=== PATIENT | female | born 1975 | race Caucasian/White ===

== ENCOUNTER 2016-12-30 06:44 | Day surgery (SDC) | payer BC ==
[~2016-12-30 06:44] MED LIST: Lactated Ringers 1,000 ML IV SCH; Lidocaine 1%/Sod Bicarbonate in NS 8.4% 1 ML Syringe PRN; Sodium Chloride 0.9% 10 ML Syringe FLUSH PRN
[2016-12-30] MEDS ORDERED: Bupivacaine 0.5% 30 ML SDV ONE (07:05)
[2016-12-30] MEDS ORDERED: Lidocaine 1% with EPINEPHrine 1:100,000 20 ML MDV ONE (07:05)
[2016-12-30] MEDS ORDERED: Sodium Chloride 0.9% 50 ML SDV ONE (07:06)
--- NOTE | 2016-12-30 07:17 | PCM.PREANE ---
Preanesthetic Assessment - Anesthesia/Transfusion/Family Hx Anesthesia History: Prior Anesthesia Without Reaction Family History of Anesthesia Reaction: Yes (nausea) Transfusion History: No Prior Transfusion(s) - Review of Systems General: No Symptoms Pulmonary: No Symptoms Cardiovascular: No Symptoms Gastrointestinal: No Symptoms Neurological: No Symptoms Other: Reports: None - Physical Assessment NPO Status Date: 12/29/16 NPO Status Time: 00:00 Pulse: 73 O2 Sat by Pulse Oximetry: 96 Respiratory Rate: 16 Blood Pressure: 122/83 Temperature: 36.5 C Height: 1.8 m Weight: 75.9 kg ASA Class: 2 Mental Status: Alert & Oriented x3 Airway Class: Mallampati = 1 Dentition: Reports: [place](s) Thyro-Mental Finger Breadths: 3 Mouth Opening Finger Breadths: 3 ROM/Head Extension: Full Lungs: Clear to Auscultation, Normal Respiratory Effort Cardiovascular: Regular Rate, Regular Rhythm - Lab Values: Laboratory Last Values Urine HCG, Qual Negative (NEGATIVE) 12/30/16 06:50 - Allergies Allergies/Adverse Reactions: Allergies Allergy/AdvReac Type Severity Reaction Status Date / Time minocycline Allergy Hives Verified 12/29/16 14:21 - Blood Blood Available: Yes - Anesthesia Plan Pre-Op Medication Ordered: None - Acknowledgements Anesthesia Type Planned: General Anesthesia Pt an Appropriate Candidate for the Planned Anesthesia: Yes Alternatives and Risks of Anesthesia Discussed w Pt/Guardian: Yes Pt/Guardian Understands and Agrees with Anesthesia Plan: Yes PreAnesthesia Questionnaire HEENT History: Reports: Impaired Vision, Other (See Below) Other HEENT History: wears glasses Cardiovascular History: Reports: None Respiratory History: Reports: None Gastrointestinal History: Reports: None 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: Endometrial Ablation, Other (See Below) Other OB/BYN History: menorrhagia, hysteroscopy Musculoskeletal History: Reports: None Neurological History: Reports: Migraines Psychiatric History: Reports: None Endocrine/Metabolic History: Reports: None Hematologic History: Reports: None Immunologic History: Reports: None Oncologic (Cancer) History: Reports: None Dermatologic History: Reports: Other (See Below) Other Dermatologic History: acne, excision of benign lesion - Past Surgical History Head Surgeries/Procedures: Reports: None HEENT Surgical History: Reports: LASIK, Oral Surgery Cardiovascular Surgical History: Reports: None Respiratory Surgical History: Reports: None GI Surgical History: Reports: None Female Surgical History: Reports: D&C, Endometrial Ablation, Tubal Ligation Endocrine Surgical History: Reports: None Neurological Surgical History: Reports: None Musculoskeletal Surgical History: Reports: None Oncologic Surgical History: Reports: None - SUBSTANCE USE Smoking Status *Q: Former Smoker Tobacco Use Within Last Twelve Months: No Second Hand Smoke Exposure: No Days Per Week of Alcohol Use: 0 Number of Drinks Per Day: 0 Total Drinks Per Week: 0 Recreational Drug Use History: No - HOME MEDS Home Medications: Home Meds Biotin 10 mg PO DAILY 12/29/16 [History] Naproxen Sodium [Aleve] 220 - 240 mg PO BID PRN 12/29/16 [History] Spironolactone [Aldactone] 100 mg PO DAILY 12/29/16 [History] - CURRENT (IN HOUSE) MEDS Current Meds: Current Medications Lactated Ringer's (Ringers, Lactated) 1,000 mls @ 125 mls/hr IV ASDIRECTED STACIE Stop: 12/30/16 23:00 Lidocaine/Sodium Bicarbonate (Buffered Lidocaine 1% In Ns 8.4%) 0.25 ml .XX ONETIME PRN PRN Reason: Prior to IV Start Stop: 12/30/16 18:00 Sodium Chloride (Saline Flush) 10 ml FLUSH ASDIRECTED PRN PRN Reason: Keep Vein Open Stop: 12/30/16 18:00
[2016-12-30] MEDS ORDERED: Rocuronium 50 MG/5 ML Vial ONE (07:26)
[2016-12-30] MEDS ORDERED: fentaNYL 250 MCG/5 ML SDV ONE ×2 (07:26→08:42)
[2016-12-30] MEDS ORDERED: Ondansetron 4 MG/2 ML SDV ONE (07:26)
[2016-12-30] MEDS ORDERED: Propofol 200 MG/20 ML SDV ONE (07:26)
[2016-12-30] MEDS ORDERED: Midazolam 1 MG/ML 2 ML SDV ONE (07:26)
[2016-12-30] MEDS ORDERED: Lidocaine 1% 4 ML ONE (07:27)
[2016-12-30] MEDS ORDERED: ceFAZolin 1 GM Vial ONE (07:32)
[2016-12-30] MEDS ORDERED: Dexamethasone 4 MG/ML 5 ML MDV ONE (08:04)
[2016-12-30] MEDS ORDERED: diphenhydrAMINE 50 MG/ML SDV ONE (08:04)
[2016-12-30] MEDS ORDERED: HYDROmorphone 1 MG/ML Syringe ONE ×2 (08:15→08:50)
[2016-12-30] MEDS ORDERED: Lactated Ringers 1,000 ML ONE ×3 (08:32→10:37)
[2016-12-30] MEDS ORDERED: Ketorolac 30 MG/ML SDV IVPUSH PRN (10:43)
[2016-12-30] MEDS ORDERED: HYDROmorphone 0.5 MG/0.5 ML Syringe IVPUSH PRN (10:43)
[2016-12-30] MEDS ORDERED: fentaNYL 100 MCG/2 ML SDV IVPUSH PRN (10:43)
--- NOTE | 2016-12-30 10:43 | PCM.OPNOTE ---
- General Post-Op/Procedure Note Date of Surgery/Procedure: 12/30/16 Operative Procedure(s): LAVH, bilateral salpingectomy Findings: Normal tubes and ovaries Pre Op Diagnosis: menorrhagia, family history of ovarian cancer Post-Op Diagnosis: Same Anesthesia Technique: General ET Tube Primary Surgeon: Tahmina Carlisle Tool And Fixture Repairer: Elaina Hare Reason Tool And Fixture Repairer Was Necessary: patient positioning, safety, retraction Pathology: uterus and tubes Fluid Replacement, Intraop: 3,000 Output, Urine Amount: 100 EBL in mLs: 600 Complications: None Condition: Good Free Text/Narrative:: After obtaining appropriate consent she was taken the the operating room where general anesthetic was administered. She was prepped and draped in the usual sterile fashion in high lithotomy using rocael stirrups. A weighted speculum was placed in the posterior vagina and a michaela utilized anteriorly to visualize the cervix which was grasped with a single toothed tenaculum and placed on traction. A uterine manipulator was then advanced into the uterus. Attention was re-directed to the abdomen and a 5 mm skin incision was made in the patient's umbilical fold. A blunt tipped trocar was advanced under direct visualization using the laparoscope. The abdomen was insufflated and no evidence of injury upon entry was noted. General survey of the abdomen reveal enlarged and boggy uterus and ovaries. A 5 mm incision was then made on each the right and left side and a blunt tipped trocar was advanced under direct visualization. The left ovary was elevated and the IP ligement was cauterized and transected with the Ligasure after the ureter was identified. The dissection was continued to the round ligament. The round ligament was then cauterized and transected. The bladder flap was created starting on the left. Bladder was dissected off the cervix. The uterine artery and broad ligament on the left was serial cauterized and transected to the level of the cervix. The right IP, round ligament, broad ligament and uterine artery were cauterized and transected in a similar manner. No bleeding was noted at any of the pedicles. The pelvis was irrigated and suctioned. All instruments were removed and the gas was released. Attention was redirected to the vagina. Area of intended colpotomy injected with 25% marcaine with epinepherine. Incision made with scapel. The posterior cul-de-sac was entered sharply with the Mooney scissors. The long weighted speculum was placed. The uterosacral ligaments were identified bilaterally, clamped, transected with ligasure. These were tagged for later reference. A second clamp was placed onto the cardinal ligament bilaterally, this was transected and ligasure ligated. Attention was turned anteriorly. Blunt and sharp dissection was used to mobilize the bladder off the cervix. The anterior cul-de-sac was entered sharply. The cardinal ligament was serially clamped, transected and suture ligated. The Bakari retractor was advanced. The cardinal ligament was then clamped to met the dissection from above including the uterine vessels bilaterally. The specimen was delivered and handed off. Inspection of the pedicles noted hemostasis. The posterior cuff was run with 0- vicryl in a running fashion. The cuff was closed using 0 vicryl figure of eights in a vertical fashion. The retractors were removed and the abdomen was reinsufflated. All pedicles were hemostatic. All instruments were removed from the abdomen and the incisions were closed with 4-0 vicryl and covered with dermabond. Clear urine was noted. She was repositioned supine, draping removed and then taken to PACU in stable condition. Needle, sponge and instrument counts were correct X 3.
[2016-12-30] MEDS ORDERED: Acetaminophen/oxyCODONE 325-5 MG Tab PO PRN (10:44)
[2016-12-30] MEDS ORDERED: Ibuprofen 600 MG Tab PO PRN (10:44)
--- NOTE | 2016-12-30 10:45 | PCM.POSTAN ---
POST ANESTHESIA ASSESSMENT - MENTAL STATUS Mental Status: Alert, Oriented - VITAL SIGNS Pulse Rate: 94 SaO2: 100 Resp Rate: 7 Blood Pressure: 118/76 Temperature: 37.2 C - RESPIRATORY Respiratory Status: Respiratory Rate WNL, Airway Patent, O2 Saturation Stable, Supplemental Oxygen - CARDIOVASCULAR CV Status: Pulse Rate WNL, Blood Pressure Stable - GASTROINTESTINAL GI Status: No Symptoms - PAIN Pain Score: 0 - POST OP HYDRATION Hydration Status: Adequate & Stable - OBSERVATIONS Free Text/Narrative:: no anesthesia complications noted
--- NOTE | 2016-12-31 09:18 | PCM48HPAN ---
Post Anesthesia Note - EVALUATION WITHIN 48HRS OF ANESTHETIC Vital Signs in Normal Range: Yes Patient Participated in Evaluation: No (Patient discharged prior to assessment) Respiratory Function Stable: Yes Airway Patent: Yes Cardiovascular Function Stable: Yes Hydration Status Stable: Yes Pain Control Satisfactory: Yes Nausea and Vomiting Control Satisfactory: Yes Mental Status Recovered: Yes
== END 2016-12-30 20:00 | disposition home or self-care (01) ==
LOC: JD.SDS 06:44 → JD.OB 11:55 → JD.SDS 20:00
PROVIDERS: ATTEND Obstetrics & Gynecology
DX: D25.9 Leiomyoma of uterus, unspecified (principal); N80.0 Endometriosis of uterus; N83.8 Other noninflammatory disorders of ovary, fallopian tube and broad ligament; Z88.1 Allergy status to other antibiotic agents; Z98.890 Other specified postprocedural states; Z87.891 Personal history of nicotine dependence; Z79.899 Other long term (current) drug therapy
CPT/HCPCS: 36415; 58552; 80048; 81025; 85025; 86850; 86900; 86901; A9270; J0690; J1100; J1170; J1200; J1885; J2250; J2405; J3010; J7120; 00840; J2704

== ENCOUNTER 2018-05-26 12:34 | Emergency (ER) | payer BC ==
[2018-05-26] MEDS ORDERED: Ketorolac 30 MG/ML SDV IVPUSH ONE (13:28)
[2018-05-26] MEDS ORDERED: Sodium Chloride 0.9% 10 ML Syringe FLUSH PRN (13:28)
[2018-05-26] MEDS ORDERED: Ondansetron 4 MG/2 ML SDV IVPUSH ONE (13:28)
[2018-05-26] MEDS ORDERED: Sodium Chloride 0.9% 1,000 ML IV SCH (13:30)
--- NOTE | 2018-05-26 13:53 | EDM.PDOC ---
ED HPI GENERAL MEDICAL PROBLEM - General Chief Complaint: Gastrointestinal Problem Stated Complaint: ALLERGIC REACTION, VOMITTING Time Seen by Provider: 05/26/18 13:01 Source of Information: Reports: Patient, RN Notes Reviewed History Limitations: Reports: No Limitations - History of Present Illness INITIAL COMMENTS - FREE TEXT/NARRATIVE: Patient is a 42-year-old female who presents to the ED for the evaluation of vomiting. She states that she has been sick since around May 08 with upper respiratory symptoms, headache/cough/fever/chills. She has been evaluated at the walk-in clinic a few times this time span. She had been given a prescription for amoxicillin and she did take this with some mild nausea and diarrhea at the time she started this medication. She states she wasn't feeling much better and went to the clinic again and they gave her a prescription for Augmentin on Wednesday. She states that she filled these Wednesday and started taking them she felt fine initially yesterday but today she wakes up with vomiting, hot flashes, nausea, diarrhea. She has been using Flonase, herbal supplements, vitamin D for her other cold-like symptoms. She states that she has had 4 episodes of vomiting since around 10:30 this morning. She notes that she was checked for a UTI at the clinic and this was negative as well. Abdominal Pain Score (Numeric/FACES): 8 - Related Data Allergies Allergy/AdvReac Type Severity Reaction Status Date / Time minocycline Allergy Hives Verified 05/26/18 12:49 Home Meds: Home Meds Biotin 10 mg PO DAILY 12/29/16 [History] Spironolactone [Aldactone] 100 mg PO DAILY 12/29/16 [History] Ondansetron [Zofran ODT] 4 mg PO Q8H PRN #28 tab.dis 05/26/18 [Rx] Past Medical History HEENT History: Reports: Impaired Vision, Other (See Below) Other HEENT History: wears glasses Cardiovascular History: Reports: None Respiratory History: Reports: None Gastrointestinal History: Reports: None Genitourinary History: Reports: None GLOBAL MARKETING MANAGER History: Reports: Endometrial Ablation, Other (See Below) Other GLOBAL MARKETING MANAGER History: menorrhagia, hysteroscopy Musculoskeletal History: Reports: None Neurological History: Reports: Migraines Psychiatric History: Reports: None Endocrine/Metabolic History: Reports: None Hematologic History: Reports: None Immunologic History: Reports: None Oncologic (Cancer) History: Reports: None Dermatologic History: Reports: Other (See Below) Other Dermatologic History: acne, excision of benign lesion - Infectious Disease History Infectious Disease History: Reports: None - Past Surgical History Head Surgeries/Procedures: Reports: None HEENT Surgical History: Reports: LASIK, Oral Surgery Cardiovascular Surgical History: Reports: None Respiratory Surgical History: Reports: None GI Surgical History: Reports: None Female Surgical History: Reports: D&C, Endometrial Ablation, Tubal Ligation Endocrine Surgical History: Reports: None Neurological Surgical History: Reports: None Musculoskeletal Surgical History: Reports: None Oncologic Surgical History: Reports: None Social & Family History - Tobacco Use Smoking Status *Q: Never Smoker - Caffeine Use Caffeine Use: Reports: None - Recreational Drug Use Recreational Drug Use: No ED ROS GENERAL - Review of Systems Review Of Systems: See Below Constitutional: Reports: No Symptoms, Fever, Chills HEENT: Reports: Rhinitis, Sinus Problem Respiratory: Denies: Shortness of Breath, Wheezing, Cough Cardiovascular: Denies: Chest Pain Endocrine: Reports: No Symptoms GI/Abdominal: Reports: Abdominal Pain (generalized), Diarrhea, Nausea, Vomiting. Denies: Constipation : Reports: No Symptoms Musculoskeletal: Reports: No Symptoms Skin: Reports: Rash (skin flushing of her chest and neck) Neurological: Reports: No Symptoms Psychiatric: Reports: No Symptoms ED EXAM, GI/ABD - Physical Exam Exam: See Below Exam Limited By: No Limitations General Appearance: Alert, WD/WN, Mild Distress (Patient is curled up at bedside and has a emesis bag near her, not actively vomiting but nauseous) Eyes: Bilateral: Normal Appearance Ears: Normal External Exam, Normal TMs Nose: Normal Inspection Throat/Mouth: Normal Inspection, Normal Lips, Normal Teeth, Normal Gums, Normal Oropharynx, Normal Voice, No Airway Compromise, Other (mildy dry oral mucosa) Head: Atraumatic, Normocephalic Neck: Normal Inspection Respiratory/Chest: No Respiratory Distress, Lungs Clear, Normal Breath Sounds, No Accessory Muscle Use, Chest Non-Tender Cardiovascular: Normal Peripheral Pulses, Regular Rate, Rhythm, No Murmur GI/Abdominal Exam: Normal Bowel Sounds, Soft, No Distention, No Mass, Tender ( generalized, but mainly tender over her epigastrium) Neurological: Alert, Oriented, Normal Cognition, Normal Gait, No Motor/Sensory Deficits Psychiatric: Normal Affect, Normal Mood Skin Exam: Warm, Dry, Intact, Normal Color, No Rash Course - Vital Signs Last Recorded V/S: Last Vital Signs Temp 98.6 F 05/26/18 12:46 Pulse 84 05/26/18 12:46 Resp 16 05/26/18 12:46 BP 136/85 05/26/18 12:46 Pulse Ox 95 05/26/18 12:46 - Orders/Labs/Meds Orders: Active Orders 24 hr Category Date Time Status Peripheral IV Care [RC] . DIRECTED Care 05/26/18 13:28 Ordered Sodium Chloride 0.9% [Normal Saline] 1,000 ml Med 05/26/18 13:30 Ordered IV ASDIRECTED Sodium Chloride 0.9% [Saline Flush] Med 05/26/18 13:28 Ordered 10 ml FLUSH ASDIRECTED PRN Peripheral IV Insertion Adult [OM.PC] Routine Oth 05/26/18 13:28 Ordered Medication Orders Sodium Chloride (Normal Saline) 1,000 mls @ 999 mls/hr IV ASDIRECTED STACIE Last Admin: 05/26/18 13:37 Dose: 999 mls/hr Sodium Chloride (Saline Flush) 10 ml FLUSH ASDIRECTED PRN PRN Reason: Keep Vein Open Last Admin: 05/26/18 13:39 Dose: 10 ml Labs: Laboratory Tests 05/26/18 05/26/18 05/26/18 Range/Units 13:40 13:40 13:40 WBC 20.04 H (3.98-10.04) K/mm3 RBC 5.12 (3.98-5.22) M/mm3 Hgb 15.0 (11.2-15.7) gm/L Hct 45.5 H (34.1-44.9) % MCV 88.9 (79.4-94.8) fl MCH 29.3 (25.6-32.2) pg MCHC 33.0 (32.2-35.5) g/dl RDW Std Deviation 41.4 (36.4-46.3) fL Plt Count 404 H (182-369) K/mm3 MPV 9.2 L (9.4-12.3) fl Neutrophils % (Manual) 87 H (40-60) % Band Neutrophils % 0 (0-10) % Lymphocytes % (Manual) 10 L (20-40) % Atypical Lymphs % 0 % Monocytes % (Manual) 3 (2-10) % Eosinophils % (Manual) 0 L (0.7-5.8) % Basophils % (Manual) 0 L (0.1-1.2) Platelet Estimate Adequate RBC Morph Comment Normal Sodium 140 (136-145) mEq/L Potassium 4.4 (3.5-5.1) mEq/L Chloride 102 (98-107) mEq/L Carbon Dioxide 26 (21-32) mEq/L Anion Gap 16.4 H (5-15) BUN 16 (7-18) mg/dL Creatinine 0.9 (0.55-1.02) mg/dL Est Cr Clr Drug Dosing 91.01 mL/min Estimated GFR (MDRD) > 60 (>60) mL/min BUN/Creatinine Ratio 17.8 (14-18) Glucose 115 H (74-106) mg/dL Calcium 9.4 (8.5-10.1) mg/dL Total Bilirubin 0.9 (0.2-1.0) mg/dL AST 67 H (15-37) U/L ALT 122 H (14-59) U/L Alkaline Phosphatase 74 (46-116) U/L C-Reactive Protein 0.5 (<1.0) mg/dL Total Protein 8.4 H (6.4-8.2) g/dl Albumin 4.2 (3.4-5.0) g/dl Globulin 4.2 gm/dL Albumin/Globulin Ratio 1.0 (1-2) Urine Color (Yellow) Urine Appearance (Clear) Urine pH (5.0-8.0) Ur Specific [place] (1.005-1.030) Urine Protein (Negative) Urine Glucose (UA) (Negative) Urine Ketones (Negative) Urine Occult Blood (Negative) Urine Nitrite (Negative) Urine Bilirubin (Negative) Urine Urobilinogen (0.2-1.0) Ur Leukocyte Esterase (Negative) Urine RBC (0-5) /hpf Urine WBC (0-5) /hpf Ur Epithelial Cells (0-5) /hpf Urine Bacteria (FEW) /hpf Urine Mucus (FEW) /hpf 05/26/18 Range/Units 14:30 WBC (3.98-10.04) K/mm3 RBC (3.98-5.22) M/mm3 Hgb (11.2-15.7) gm/L Hct (34.1-44.9) % MCV (79.4-94.8) fl MCH (25.6-32.2) pg MCHC (32.2-35.5) g/dl RDW Std Deviation (36.4-46.3) fL Plt Count (182-369) K/mm3 MPV (9.4-12.3) fl Neutrophils % (Manual) (40-60) % Band Neutrophils % (0-10) % Lymphocytes % (Manual) (20-40) % Atypical Lymphs % % Monocytes % (Manual) (2-10) % Eosinophils % (Manual) (0.7-5.8) % Basophils % (Manual) (0.1-1.2) Platelet Estimate RBC Morph Comment Sodium (136-145) mEq/L Potassium (3.5-5.1) mEq/L Chloride (98-107) mEq/L Carbon Dioxide (21-32) mEq/L Anion Gap (5-15) BUN (7-18) mg/dL Creatinine (0.55-1.02) mg/dL Est Cr Clr Drug Dosing mL/min Estimated GFR (MDRD) (>60) mL/min BUN/Creatinine Ratio (14-18) Glucose (74-106) mg/dL Calcium (8.5-10.1) mg/dL Total Bilirubin (0.2-1.0) mg/dL AST (15-37) U/L ALT (14-59) U/L Alkaline Phosphatase (46-116) U/L C-Reactive Protein (<1.0) mg/dL Total Protein (6.4-8.2) g/dl Albumin (3.4-5.0) g/dl Globulin gm/dL Albumin/Globulin Ratio (1-2) Urine Color Yellow (Yellow) Urine Appearance Clear (Clear) Urine pH 5.5 (5.0-8.0) Ur Specific [place] > or = 1.030 (1.005-1.030) Urine Protein 2+ H (Negative) Urine Glucose (UA) Negative (Negative) Urine Ketones Negative (Negative) Urine Occult Blood 1+ H (Negative) Urine Nitrite Negative (Negative) Urine Bilirubin Negative (Negative) Urine Urobilinogen 0.2 (0.2-1.0) Ur Leukocyte Esterase Negative (Negative) Urine RBC 0-5 (0-5) /hpf Urine WBC 0-5 (0-5) /hpf Ur Epithelial Cells 0-5 (0-5) /hpf Urine Bacteria Few (FEW) /hpf Urine Mucus Few (FEW) /hpf Meds: Medications Generic Name Dose Route Start Last Admin Trade Name Freq PRN Reason Stop Dose Admin Sodium Chloride 1,000 mls @ 999 mls/hr 05/26/18 13:30 05/26/18 13:37 Normal Saline IV 999 mls/hr ASDIRECTED STACIE Administration Sodium Chloride 10 ml 05/26/18 13:28 05/26/18 13:39 Saline Flush FLUSH 10 ml ASDIRECTED PRN Administration Keep Vein Open Discontinued Medications Generic Name Dose Route Start Last Admin Trade Name Freq PRN Reason Stop Dose Admin Ketorolac Tromethamine 30 mg 05/26/18 13:28 05/26/18 13:38 Toradol IVPUSH 05/26/18 13:29 30 mg ONETIME ONE Administration Ondansetron HCl 4 mg 05/26/18 13:28 05/26/18 13:38 Zofran IVPUSH 05/26/18 13:29 4 mg ONETIME ONE Administration - Re-Assessments/Exams Free Text/Narrative Re-Assessment/Exam: 05/26/18 13:55 Patient presents to the ED for the evaluation of vomiting. I'm wondering if her GI upset isn't due to the start of Augmentin, as vomiting and diarrhea are a very common side effects of Augmentin versus a different gastrointestinal bug that she could have picked up. She has been sick since around May 08 with various symptoms. Have ordered IV fluids, 30 mg IV Toradol, 4 mg IV Zofran and a CBC and CMP for further evaluation and management. It is likely that she never even had a sinus infection and had just sinusitis in nature and was given inappropriate antibiotics for a nonbacterial issue. We will recommend that she stop taking the Augmentin at this time. 05/26/18 14:47 Patient's labs have returned and her white count is markedly elevated at 20,000 with 87% neutrophils and 0 bands. Anion gap is slightly elevated at 16.4, AST/ ALC are both mildly elevated, her CRP is only and 0.5 and her UA does not show any acute signs of a urinary tract infection at this time. Her elevated white count may be just due to the stress reaction from the vomiting. The patient states that she does feel better after the Zofran, Toradol and some IV fluids. Departure - Departure Time of Disposition: 15:09 Disposition: Home, Self-Care 01 Condition: Fair Clinical Impression: Gastroenteritis - Discharge Information *PRESCRIPTION DRUG MONITORING PROGRAM REVIEWED*: No *COPY OF PRESCRIPTION DRUG MONITORING REPORT IN PATIENT SAE: No Instructions: Viral Gastroenteritis, Adult, [id number], Nausea and Vomiting, Adult, [id number] Referrals: PCP,Unknown [Primary Care Provider] - Forms: ED Department Discharge Additional Instructions: You have been evaluated in the ED for nausea/vomiting/diarrhea. It is likely that this is caused from a viral gastroenteritis. You have received IV fluid in the ED to help with the dehydration from the vomiting and diarrhea. Over the next 24-48 hours please try to limit diet to clear liquids or bland diet to alleviate symptoms of nausea/vomiting/diarrhea. Please use the Zofran every 8 hours as needed for nausea. Please only use 3 doses in a 24-hour time span. Please stop taking the Augmentin that was prescribed to you. Recommend that you take [id number] viral cold medicines like nasal decongestants ( phenylephrine), Tylenol/ibuprofen every 6 hours as needed. Do not exceed 4000 mg Tylenol or 3200 mg ibuprofen in a 24 hour time span. Please return to the ED if your symptoms should change or worsen. - My Orders Last 24 Hours: My Active Orders 05/26/18 13:28 Peripheral IV Care [RC] . DIRECTED Sodium Chloride 0.9% [Saline Flush] 10 ml FLUSH ASDIRECTED PRN Peripheral IV Insertion Adult [OM.PC] Routine 05/26/18 13:30 Sodium Chloride 0.9% [Normal Saline] 1,000 ml IV ASDIRECTED - Assessment/Plan Last 24 Hours: My Active Orders 05/26/18 13:28 Peripheral IV Care [RC] . DIRECTED Sodium Chloride 0.9% [Saline Flush] 10 ml FLUSH ASDIRECTED PRN Peripheral IV Insertion Adult [OM.PC] Routine 05/26/18 13:30 Sodium Chloride 0.9% [Normal Saline] 1,000 ml IV ASDIRECTED
== END 2018-05-26 15:22 | disposition home or self-care (01) ==
LOC: JD.ED 12:34
DX: K52.9 Noninfective gastroenteritis and colitis, unspecified (principal); Z79.899 Other long term (current) drug therapy; Z88.1 Allergy status to other antibiotic agents
CPT/HCPCS: 36415; 80053; 81001; 85007; 85027; 86140; 96361; 96374; 96375; 99284; J1885; J2405; J7040